=== PATIENT | male | born 1955 | race Caucasian/White ===

== ENCOUNTER 2017-10-15 07:10 | Day surgery (SDC) | payer BC ==
[~2017-10-15] VITALS: Ht 185.4 cm; Wt 136.0 kg
[~2017-10-15 07:10] MED LIST: CLONIDINE HCL0.2 MG PO; LO-DOSE ASPIRIN81 M1 PO; NON-ASPIRIN EX500 M2 PO; PRINIVIL20 MG PO
[2017-10-15 08:04] VITALS: BP 112/58
[2017-10-15] MEDS ORDERED: NORCO 5/3251 TABLET PO (12:31)
[2017-10-15 14:18] VITALS: BP 141/73
[2017-10-15 14:56] VITALS: BP 132/62
== END 2017-10-15 15:03 | disposition home or self-care (01) ==
LOC: SDC 07:10
PROC: 0WUF4JZ Supplement Abdominal Wall with Synthetic Substitute, Percutaneous Endoscopic Approach (ICD-10-PCS; principal; 2017-10-15)
DX: K43.0 Incisional hernia with obstruction, without gangrene (principal); I10 Essential (primary) hypertension; N28.9 Disorder of kidney and ureter, unspecified; R42 Dizziness and giddiness; F17.220 Nicotine dependence, chewing tobacco, uncomplicated
CPT/HCPCS: 88302; 93005; C1781; J0131; J0690; J1100; J1170; J1885; J2405; J3010; S0020